=== PATIENT | male | born 1965 | race Caucasian/White ===

== ENCOUNTER 2017-08-31 08:47 | Day surgery (SDC) | payer BC ==
[~2017-08-31 08:47] MED LIST: ACETAMINOPHEN 1,000 MG/100 ML BTL IV ONE
[2017-08-31] MEDS ORDERED: KETOROLAC 30 MG/ML VIAL IVP ONE (08:48)
[2017-08-31] MEDS ORDERED: BUPIVACAINE 0.25% W/EPI MPF 30ML VIAL IVP ONE (08:48)
[2017-08-31] MEDS ORDERED: HYDROCODONE/APAP 5/325MG TABLET PO ONE (08:48)
[2017-08-31] MEDS ORDERED: PROPOFOL 10 MG/ML VIAL IV ONE (08:48)
[2017-08-31] MEDS ORDERED: SEVOFLURANE 250 ML INH ONE (08:48)
[2017-08-31] MEDS ORDERED: LIDOCAINE 2% MDV (20MG/ML) 20ML VIAL IV ONE (08:48)
[2017-08-31] MEDS ORDERED: *PACU ONLY* KETAMINE HCL 10 MG/ML (20ML) VIAL IV ONE (08:48)
--- NOTE | 2017-09-01 13:10 | Operative Note ---
DATE OF SURGERY: 08/31/2017 Surgeon: Frandy Woodson DO Referring physician: Aron Morse DO PREOPERATIVE DIAGNOSIS: Torn medial meniscus left knee. POSTOPERATIVE DIAGNOSES: 1. Torn medial meniscus left knee. 2. Medial mid patella plica left knee. 3. 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 OPERATION: 1. Arthroscopic partial medial meniscectomy left knee. 2. Arthroscopic resection medial mid patella plica left knee. 3. Arthroscopic chondroplasty of the medial femoral condyle left knee. Anesthesia: General. PROCEDURE: This 52-year-old male was taken to the operating room and placed in the supine position on the operating room table. General anesthesia was induced. The left lower extremity was elevated, it was exsanguinated and the tourniquet inflated to 300 mmHg. Arthroscopic knee-burton applied. The left knee prepped with Hibiclens and draped in the usual sterile fashion. An inferior lateral left portal was established for the 4 mm arthroscope and initial evaluation of the joint demonstrated normal appearance of the suprapatellar pouch, but he did have a torn, frayed, and fibrotic medial mid patellar plica. An inferomedial portal was established and resection of the medial mid patella plica was present. Some minimal grade 2 chondromalacia of the medial facet of the patella was present, but it was not grossly unstable and not further disturbed. The trochlea, however, did appear to be normal. The medial compartment was entered and a grade 3 chondromalacia of the lateral aspect of the medial weightbearing surface of the medial femoral condyle showed a grade 3 change in that location. This was a sizeable lesion, being 2 to 3 cm in greatest dimension, with loose fragment to the ends, at the periphery of the lesion and utilizing the rotating shaver, we resected unstable fragments of articular cartilage of the medial femoral condyle. This was reprobed and confirmed to be stable. It did not extend all the way to the most medial edge of the medial femoral condyle. The patient had degenerative tear with a radial component at approximately the 12 o'clock position, being the apex. We resected back to the apex of the tear, which is about the mid portion of the meniscus and then it was tapered in each direction to form a smooth contoured surface. This was then reprobed and no additional findings were present and it was seen to be stable. The intercondylar notch was examined and found to be essentially normal. The lateral compartment was entered. Articular cartilage appeared to be normal. We did not see any evidence of cracked or broken cartilage and the lateral meniscus was probed and found to be normal. The joint was then copiously irrigated and suctioned, all areas re-examined. No additional findings were present. The joint was suctioned. The instruments were removed. The portals infiltrated with 0.25% Marcaine with epinephrine. Sterile dressings applied. The tourniquet and knee burton released. The patient taken to the recovery room in satisfactory condition. GROSS PATHOLOGY: This patient demonstrated a degenerative tear of the posterior horn of the medial meniscus with a radial component also being identified. A fibrotic and torn medial mid patella plica was present, grade 3 chondromalacia of the medial femoral condyle, minimal grade 2 changes noted of the patella. [facility]
== END 2017-08-31 12:15 | disposition home or self-care (01) ==
LOC: SUR 08:47
PROVIDERS: ATTEND Orthopaedic Surgery
DX: M23.222 Derangement of posterior horn of medial meniscus due to old tear or injury, left knee (principal); M22.42 Chondromalacia patellae, left knee; M67.52 Plica syndrome, left knee; I10 Essential (primary) hypertension; E78.00 Pure hypercholesterolemia, unspecified
CPT/HCPCS: 29881; 01400; J1885